=== PATIENT | female | born 1970 | race Caucasian/White ===

== ENCOUNTER → 2017-03-29 16:05 | Outpatient (CLI) | payer MEDICARE ==
[2014-12-31 08:33] VITALS: BMI 39.5
[~2017-03-29 16:05] MED LIST: AMITIZA24 MCG PO; BENTYL10 MG PO; BUTALB-APAP-CA1 EACH PO; ESTRACE2 MG PO; GABAPENTIN100 MG PO; HYDROCHLOROTHIA25 MG GT; HYDROCHLOROTHIA25 MG PO; HYDROCODON-ACE1 EAC7 PO; LODINE200 MG PO; LODINE400 MG PO; MIRALAX17 GM PO; NEURONTIN 300300 MG PO; PAXIL20 MG PO; PRAVACHOL20 MG PO; STOOL SOFTENER240 MG PO; SYNTHROID25 MCG PO; SYNTHROID50 MCG PO; VITAMIN B-121000 MCG PO; VITAMIN C1000 MG PO; VITAMIN D31000 UNI2 PO
== END | disposition home or self-care (01) ==
LOC: D.MAMMO 15:00
DX: Z12.31 Encounter for screening mammogram for malignant neoplasm of breast (principal)

== ENCOUNTER 2018-05-17 08:00 | Outpatient (CLI) | payer MEDICARE ==
[2014-12-31 08:33] VITALS: BMI 39.5
== END 2018-05-17 09:00 | disposition home or self-care (01) ==
LOC: D.MAMMO 08:00
DX: Z12.31 Encounter for screening mammogram for malignant neoplasm of breast (principal)

== ENCOUNTER → 2018-06-06 17:18 | Outpatient (CLI) | payer MEDICARE ==
[2014-12-31 08:33] VITALS: BMI 39.5
== END | disposition home or self-care (01) ==
LOC: D.MAMMO 14:30
DX: R92.8 Other abnormal and inconclusive findings on diagnostic imaging of breast (principal)